=== PATIENT | male | born 1955 | race Caucasian/White ===

== ENCOUNTER 2024-09-25 16:56 | Observation (INO) ==
[2024-09-25 17:17] VITALS: O2SAT 99
[2024-09-25] MEDS ORDERED: NovoLIN R (or HumuLIN R) SUBCUT PRN (17:24)
[2024-09-25] MEDS ORDERED: ZOFRAN INJ 4 MG VIAL IVP PRN (17:25)
--- NOTE | 2024-09-25 17:34 | DR.H&P ---
H&P History & Physical for Day of: H&P Date: 09/25/24 Chief Complaint Chief Complaint: "not ate in two weeks" n/v dehydration, weakness History of Present Illness History of Present Illness: PT IS 69 WM, DIRECT ADMIT FROM DR LUA OFFICE WITH ABNORMAL OUTPT LABS WITH ACUTE RENAL FAILURE, DEHYDRATION, CO CANNOT EAT WITHOUT VOMITING. PT IS TYPE 2 DM AND HAS BEEN ON MOUNJARO PRIOR TO OUT PRACTICE, WHICH WE HELD. PT WAS ALSO TAKING HIGH DOSE LINZESS WITH CO DIARRHEA WHICH WAS HELD FOR TWO WEEKS WITH FAMILY REPORTING PT CANNOT EAT WITHOUT VOMITING AND CO DIARRHEA ALSO. PT HAD NEW CO SOB. PT'S FAMILY REPORTS PT HAS LOST 2OLBS IN 2 WEEKS. PT LAST WEIGHT IN OUT OFFICE ON 09/15 WAS 249.5. PT ADMITTED FOR EVALUATION AND TREATMENT OF ACUTE ILLNESS. Past Medical History Past Medical History: Anemia, Anxiety, Arthritis, Depression, Diabetes, GERD, Hypertension, Renal Disease and Sleep Apnea Family History Family Medical History: Diabetes Mellitus Medications Home Medications: Home Medications Medication Instructions Recorded Confirmed Type hydrochlorothiazide 25 mg tablet 25 mg PO DAILY 06/05/24 History icosapent ethyl 1 gram capsule 1 g PO QID 05/16/2409/24 History (Vascepa) sildenafil 100 mg tablet 100 mg PO QDAY PRN 05/16/24 06/05/24 History hydrocodone 10 mg-acetaminophen 1 tab PO Q8H PRN 06/0606/06/24 History 325 mg tablet tirzepatide 10 mg/0.5 mL 10 mg subcut QWEEK 06/06/24 06/06/24 History subcutaneous pen injector (Mounjaro) Allergies Allergies Allergy/AdvReac Type Severity Reaction Status Date / Time No Known Allergies Allergy Verified 06/05/24 09:31 Review of Systems Constitutional: Weakness Eyes: Vision Change (CHRONIC VISION IMPAIRMENT) Respiratory: Shortness of Breath Cardiovascular: No Symptoms Reported Gastrointestinal: Nausea, Vomiting, Abdominal Pain and Diarrhea Genitourinary: Frequency Musculoskeletal: Neck Pain Skin: No Symptoms Reported Neurological: Weakness Physical Exam Vital Signs: Vital Signs Temperature 98.5 F Pulse Rate [Right Radial] 80 Respiratory Rate 19 Blood Pressure [Right Arm] 107/53 O2 Sat by Pulse Oximetry 99 Oriented: Normal Eyes: negative Discharge or Redness Ear: Normal Nose: Normal Respiratory: RLL Diminished and LLL Diminished Cardiovascular: Normal Auscultation: Bowel Sounds: Decreased Tenderness: Diffuse Skin: Decreased Turgur Musculoskeletal: Motor Deficit Psychiatric: Agitation Mood Description: Anxious Affect: Hysterical Speech Pattern: Clear and Appropriate Assessment/Plan (1) Acute gastroenteritis: Status: Acute Plan: ADMIT, NPO CT ABDPELVIS AMYLASE AND LIPASE IV HYDRATION WITH STRICT I&OS PPI THERAPY, IV ZOFRAN BS CONTROL, CXR AND RESP CONSULT VERIFY HOME MEDICATION BUT HOLD PO MEDS BS CONTROL WITH SSI (2) SOB (shortness of breath): Status: Acute (3) Acute renal failure: Status: Acute (4) Type 2 diabetes mellitus: 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
[2024-09-25] MEDS: NS 1,000 ML IV 1,000 ML IV SCH (17:53)
[2024-09-25] MEDS: PROTONIX INJ 40 MG VIAL IVP SCH (17:53)
--- NOTE | 2024-09-25 18:02 | EKG ---
Test Reason : sob, weakness Blood Pressure : */* mmHG Vent. Rate : 84 BPM Atrial Rate : 84 BPM P-R Int : 186 ms QRS Dur : 150 ms QT Int : 416 ms P-R-T Axes : 100 -57 76 degrees QTc Int : 491 ms Sinus rhythm with sinus arrhythmia with occasional premature ventricular complexes Left bundle branch block Abnormal ECG No previous ECGs available Confirmed by Francisco Javier Torres MD ([id number]) on 09/26/2024 6:28:16 AM Referred By: Confirmed By: Francisco Javier Torres MD
[2024-09-25 18:20] LABS: AMYLASE 268 Units/L (25-115)
[2024-09-25] MEDS ORDERED: BUTT CREAM (COMPOUND) TOP PRN (18:20)
[2024-09-25 18:25] LABS: ALANINE AMINOTRANSFERASE 16 Units/L (12-78); ALBUMIN 5.1 g/dL (3.4-5.0); ALKALINE PHOSPHATASE 183 Units/L (46-116); ASPARTATE AMINO TRANSFERASE 13 Units/L (15-37); CHLORIDE 104 mmol/L (98-107); COR NA(FOR HYPERGLY) 139 mmol/L (136-145); GLUCOSE 178 mg/dL (65-99); SODIUM 137 mmol/L (136-145); TOTAL PROTEIN 10.7 g/dL (6.4-8.2); eGFR NON BLACK RACES 2 (>60)
[2024-09-25] MEDS ORDERED: READI-CAT 2 ONE (18:28)
[2024-09-25 18:34] LABS: BASOPHILS % (AUTO) 0.2 % (0.2-1.0); EOSINOPHILS # (AUTO) 0.1 x10^3/uL (0.0-0.2); HEMATOCRIT 31.6 % (42.0-54.0); HEMOGLOBIN 10.1 g/dL (13.5-18.0); LYMPHOCYTES # (AUTO) 0.9 X10^3/uL (1.3-2.9); LYMPHOCYTES % (AUTO) 7.5 % (21.0-51.0); MEAN CORPUSCULAR HEMOGLOBIN 26.7 pg (27.0-34.0); MEAN CORPUSCULAR HGB CONC 31.8 g/dL (33.0-35.0); MEAN CORPUSCULAR VOLUME 83.8 fL (80.0-100.0); MEAN PLATELET VOLUME 8.6 fL (7.4-11.0); MONOCYTES # (AUTO) 0.5 x10^3/uL (0.3-0.8); NEUTROPHILS # (AUTO) 10.7 x10^3/uL (2.2-4.8); NEUTROPHILS % (AUTO) 87.3 % (42.0-75.0); PLATELET COUNT 122 X10^3/uL (150.0-450.0); RED BLOOD COUNT 3.77 X10^6/uL (4.7-6.0); RED CELL DISTRIBUTION WIDTH 14.2 % (11.6-16.5); WHITE BLOOD COUNT 12.3 X10^3/uL (3.6-10.0)
[2024-09-25 18:42] LABS: LIPASE 331 Units/L (16-77)
[2024-09-25 18:45] LABS: BLOOD UREA NITROGEN 331 mg/dL (7-18); CREATININE 22.67 mg/dL (0.70-1.30)
[2024-09-25 18:47] LABS: POTASSIUM 6.9 mmol/L (3.5-5.1)
[2024-09-25 20:23] LABS: ABG BASE EXCESS -25.2 mmol/L (-2.0-2.0)
[2024-09-25 20:25] LABS: ABG ALLEN TEST POS; ABG HCO3 3.5 mmol/L (22-26)
[2024-09-25 20:42] VITALS: BP 141/64; PULSE 87; RESP 20; TEMP 96.4
--- NOTE | 2024-09-25 22:56 | RAD ---
EXAM: CHEST, 1 VIEW HISTORY: sob, weakness; COMPARISON: None available. FINDINGS: The trachea is midline. The cardiac silhouette is unremarkable . The lungs are clear without focal infiltrate or effusion. The bony thorax is unremarkable. IMPRESSION: Normal chest THIS IS AN ELECTRONICALLY VERIFIED FINAL REPORT 09/25/2024 10:53 PM - Electronically signed by Adair Sales MD
[2024-09-25 23:19] LABS: BILIRUBIN,URINE 2+ (NEGATIVE); BLOOD/HEMOGLOBIN,URINE 4+ (NEGATIVE); GLUCOSE, URINE NEGATIVE (NEGATIVE); KETONES,URINE NEGATIVE (NEGATIVE); LEUKOCYTE ESTERASE ,URINE 3+ (NEGATIVE); NITRITES,URINE NEGATIVE (NEGATIVE); PROTEIN,URINE 3+ (NEGATIVE); UROBILINOGEN,URINE NORMAL (NORMAL)
[2024-09-25] MEDS: SNACK - Diabetic Appropriate PO SCH (23:24)
[2024-09-25 23:26] LABS: APPEARANCE,URINE CLOUDY (CLEAR); COLOR,URINE YELLOW (YELLOW); RBC,URINE 20-30 /HPF (0-3); SQUAMOUS EPITHELIAL CELL,UR MODERATE /HPF (NEGATIVE)
[2024-09-25 23:27] LABS: BACTERIA,URINE TRACE /HPF (NEGATIVE); GRANULAR CASTS,URINE MODERATE /LPF (NEGATIVE); RENAL EPITHELIAL CELLS,URINE MODERATE /HPF (NEGATIVE)
== END 2024-09-25 23:40 | disposition short-term general hospital (02) ==
LOC: MED/SURG
PROVIDERS: ADMIT Internal Medicine; ATTEND Internal Medicine
DX: F41.8 Other specified anxiety disorders; N17.8 Other acute kidney failure; R53.1 Weakness; K21.9 Gastro-esophageal reflux disease without esophagitis; E78.2 Mixed hyperlipidemia; R06.02 Shortness of breath; K52.89 Other specified noninfective gastroenteritis and colitis; I10 Essential (primary) hypertension; E86.0 Dehydration; E11.65 Type 2 diabetes mellitus with hyperglycemia; Z79.4 Long term (current) use of insulin; R94.31 Abnormal electrocardiogram [ECG] [EKG]